=== PATIENT | male | born 1965 | race Hispanic/Latino ===

== ENCOUNTER 2018-02-22 19:16 | Emergency (ER) | payer MEDICAID ==
[~2018-02-22 19:16] MED LIST: ATOR20TA65 PO; CLOP75TA32 PO; LISI-613 PO
[2018-02-22] MEDS ORDERED: ONDANSETRON HCL 4 MG/2 ML VIAL ONE ×3 (19:41→20:11)
[2018-02-22] MEDS ORDERED: MORPHINE SULFATE 4 MG/1ML SYG ONE (19:41)
[2018-02-22] MEDS ORDERED: DiphenhydrAMINE HCL 50 MG/ML VIAL ONE (20:22)
[2018-02-22] MEDS ORDERED: PROCHLORPERAZINE EDISYLATE 10 MG/2 ML VIAL ONE (20:22)
[2018-02-22 20:28] LABS: BASOPHILS % (AUTO) 0.5 % (0.0-5.0); EOSINOPHILS % (AUTO) 1.3 % (0.0-8.0); HEMATOCRIT 37.6 % (42-54); LYMPHOCYTES % (AUTO) 36.5 % (21.0-51.0); MEAN CORPUSCULAR HEMOGLOBIN 29.6 pg (27.0-33.0); MEAN CORPUSCULAR HGB CONC 34.9 g/dL (32.0-36.0); MEAN CORPUSCULAR VOLUME 84.9 fL (79-99); MONOCYTES % (AUTO) 6.3 % (3.0-13.0); NEUTROPHILS % (AUTO) 55.4 % (40.0-77.0); PLATELET COUNT (AUTO) 259 K/uL (130-400); RED BLOOD CELL COUNT(AUTO) 4.43 MIL/uL (4.50-6.20); RED CELL DISTRIBUTION WIDTH 13.1 % (11.0-15.5); WHITE BLOOD COUNT (AUTO) 10.7 K/uL (4.8-10.8)
[2018-02-22 20:41] LABS: INR 0.92 (0.85-1.15); PROTHROMBIN TIME 9.7 SEC (9.6-11.6)
[2018-02-22 20:45] LABS: CREATININE 1.3 mg/dL (0.5-1.5)
[2018-02-22 20:50] LABS: ALBUMIN 3.6 g/dL (3.5-5.0); BILIRUBIN,TOTAL 0.3 mg/dL (0.2-1.0); TOTAL PROTEIN, SERUM 7.4 g/dL (6.0-8.3)
[2018-02-22 21:03] LABS: APPEARANCE,URINE Clear (CLEAR); BILIRUBIN,URINE Negative (NEGATIVE); COLOR,URINE Yellow (YELLOW); GLUCOSE, URINE (UA) Negative (NEGATIVE); KETONES,URINE Negative (NEGATIVE); LEUKOCYTE ESTERASE ,URINE Negative (NEGATIVE); NITRATE,URINE Negative (NEGATIVE); OCCULT BLOOD,URINE Negative (NEGATIVE); PROTEIN,URINE Negative (NEGATIVE)
== END 2018-02-22 21:48 | disposition home or self-care (01) ==
LOC: EDH 19:16
DX: S06.0X0A Concussion without loss of consciousness, initial encounter (principal); S16.1XXA Strain of muscle, fascia and tendon at neck level, initial encounter; I10 Essential (primary) hypertension; E78.5 Hyperlipidemia, unspecified; F41.1 Generalized anxiety disorder; R79.1 Abnormal coagulation profile; Y92.89 Other specified places as the place of occurrence of the external cause; V69.49XA Driver of heavy transport vehicle injured in collision with other motor vehicles in traffic accident, initial encounter; Y93.89 Activity, other specified; Y99.8 Other external cause status
CPT/HCPCS: 36415; 70450; 72125; 80053; 81003; 85025; 85610; 85730; 96374; 96375; 99285; J0780; J1200; J2270; J2405 ×3

== ENCOUNTER → 2019-03-16 | Outpatient (CLI) | payer MEDICAID ==
--- NOTE | 2019-03-16 23:57 | NUR ---
PATIENT UNABLE TO RECALL HOME MEDICATION NAMES. TAKES MEDICATION FOR BLOOD PRESSURE, CHOLESTEROL, BLOOD THINNER, BREATHING MED. MDI, LEG PAIN MEDICATION. Addendum: 03/16/19 at 2358 by DEONNA HAIRSTON Amended: Links added.
== END | disposition home or self-care (01) ==
LOC: SLP 20:15
PROVIDERS: ATTEND Internal Medicine Cardiovascular Disease
DX: G47.33 Obstructive sleep apnea (adult) (pediatric) (principal); I10 Essential (primary) hypertension; J45.909 Unspecified asthma, uncomplicated
CPT/HCPCS: 95810

== ENCOUNTER 2019-03-26 20:10 | Emergency (ER) | payer MEDICAID | END 2019-03-26 21:47 | disposition home or self-care (01) | LOC: EDH 20:10 | DX: S13.4XXA Sprain of ligaments of cervical spine, initial encounter (principal); F41.9 Anxiety disorder, unspecified; E78.5 Hyperlipidemia, unspecified; V69.49XA Driver of heavy transport vehicle injured in collision with other motor vehicles in traffic accident, initial encounter; Y93.89 Activity, other specified; Y92.410 Unspecified street and highway as the place of occurrence of the external cause; Y99.8 Other external cause status | CPT/HCPCS: 72040 ==

== ENCOUNTER → 2019-04-06 | Outpatient (CLI) | payer MEDICAID | END | disposition home or self-care (01) | LOC: SLP 20:13 | PROVIDERS: ATTEND Internal Medicine Cardiovascular Disease | DX: G47.33 Obstructive sleep apnea (adult) (pediatric) (principal); I10 Essential (primary) hypertension; J45.909 Unspecified asthma, uncomplicated | CPT/HCPCS: 95811 ==

== ENCOUNTER 2019-11-08 14:17 | Emergency (ER) | payer MEDICAID ==
[2019-11-08] MEDS ORDERED: CEFTRIAXONE SODIUM 1 GM ONE (15:01)
[2019-11-08] MEDS ORDERED: DEXAMETHASONE SOD PHOSPHATE 4 MG/ML 5ML VIAL ONE (15:01)
[2019-11-08] MEDS ORDERED: SODIUM CHLORIDE 0.9% 100 ML IV ONE (15:01)
[2019-11-08] MEDS ORDERED: IPRATROPIUM/ALBUTEROL SULFATE 3 ML SOLUTION IH ONE (15:02)
[2019-11-08 15:17] LABS: BASOPHILS % (AUTO) 0.3 % (0.0-5.0); EOSINOPHILS % (AUTO) 2.6 % (0.0-8.0); HEMATOCRIT 41.3 % (42-54); LYMPHOCYTES % (AUTO) 24.7 % (21.0-51.0); MEAN CORPUSCULAR HEMOGLOBIN 28.3 pg (27.0-33.0); MEAN CORPUSCULAR HGB CONC 32.7 g/dL (32.0-36.0); MEAN CORPUSCULAR VOLUME 86.6 fL (79-99); MONOCYTES % (AUTO) 11.2 % (3.0-13.0); NEUTROPHILS % (AUTO) 60.7 % (40.0-77.0); PLATELET COUNT (AUTO) 229 K/uL (130-400); RED BLOOD CELL COUNT(AUTO) 4.77 MIL/uL (4.50-6.20); RED CELL DISTRIBUTION WIDTH 12.7 % (11.0-15.5); WHITE BLOOD COUNT (AUTO) 6.1 K/uL (4.8-10.8)
[2019-11-08 15:29] LABS: CREATININE 1.3 mg/dL (0.5-1.5); POTASSIUM 3.7 mmol/L (3.5-5.1)
[2019-11-08 16:12] LABS: B-TYPE NATRIURETIC PEPTIDE < 5 pg/mL (0-100)
== END 2019-11-08 17:51 | disposition home or self-care (01) ==
LOC: EDH 14:17
DX: J10.1 Influenza due to other identified influenza virus with other respiratory manifestations (principal); F41.9 Anxiety disorder, unspecified; E78.5 Hyperlipidemia, unspecified; I10 Essential (primary) hypertension; I95.9 Hypotension, unspecified
CPT/HCPCS: 36415; 71046; 80048; 82550; 83880; 84484; 85025; 87804 ×2; 93005; 94640; 96374; 96375; 99285; J0696; J1100

== ENCOUNTER 2020-02-15 23:51 | Emergency (ER) | payer MEDICAID ==
[2020-02-15] MEDS ORDERED: PROMETHAZINE HCL 25 MG/ML 1ML AMPULE IM ONE (23:52)
[2020-02-16] MEDS ORDERED: ONDANSETRON ODT 4 MG TAB ONE (00:16)
[2020-02-16] MEDS ORDERED: HYDROMORPHONE 1 MG/1 ML AMP ONE (00:16)
[2020-02-16] MEDS ORDERED: PREDNISONE 20 MG TABLET ONE (00:20)
== END 2020-02-16 01:12 | disposition home or self-care (01) ==
LOC: EDH 23:51
DX: B02.9 Zoster without complications (principal); H92.01 Otalgia, right ear; R73.03 Prediabetes; I10 Essential (primary) hypertension; F41.9 Anxiety disorder, unspecified; E78.5 Hyperlipidemia, unspecified; Z98.890 Other specified postprocedural states
CPT/HCPCS: 82948; 96372 ×2; 99284; J1170; J2550

== ENCOUNTER 2020-06-09 15:52 | Emergency (ER) | payer MEDICAID ==
[2020-06-09] MEDS ORDERED: SODIUM CHLORIDE 0.9% 1000ML 1,000 ML IV ONE (15:53)
[2020-06-09] MEDS ORDERED: KETOROLAC TROMETHAMINE 30MG/ML IV ONE (15:53)
[2020-06-09 16:28] LABS: APPEARANCE,URINE Cloudy (CLEAR); BILIRUBIN,URINE Negative (NEGATIVE); COLOR,URINE Dark Yellow (YELLOW); GLUCOSE, URINE (UA) Negative (NEGATIVE); KETONES,URINE Negative (NEGATIVE); LEUKOCYTE ESTERASE ,URINE Trace (NEGATIVE); NITRATE,URINE Negative (NEGATIVE); OCCULT BLOOD,URINE Large (NEGATIVE); PROTEIN,URINE POS 1+ mg/dL (NEGATIVE)
[2020-06-09 16:32] LABS: BASOPHILS % (AUTO) 0.4 % (0.0-5.0); EOSINOPHILS % (AUTO) 1.1 % (0.0-8.0); HEMATOCRIT 39.4 % (42-54); LYMPHOCYTES % (AUTO) 19.6 % (21.0-51.0); MEAN CORPUSCULAR HGB CONC 33.8 g/dL (32.0-36.0); MEAN CORPUSCULAR VOLUME 85.8 fL (79-99); MONOCYTES % (AUTO) 5.1 % (3.0-13.0); NEUTROPHILS % (AUTO) 73.3 % (40.0-77.0); PLATELET COUNT (AUTO) 249 K/uL (130-400); RED BLOOD CELL COUNT(AUTO) 4.59 MIL/uL (4.50-6.20); RED CELL DISTRIBUTION WIDTH 12.2 % (11.0-15.5)
[2020-06-09 16:39] LABS: CREATININE 1.4 mg/dL (0.5-1.5); POTASSIUM 3.7 mmol/L (3.5-5.1)
[2020-06-09 16:42] LABS: BACTERIA,URINE Few /HPF (None Seen); MUCUS,URINE Few LPF (None Seen); RBC,URINE 26-50 /HPF (0-1); SQUAMOUS EPITHELIAL CELL,UR Moderate /HPF (0-2)
[2020-06-09 16:44] LABS: ALBUMIN 3.7 g/dL (3.5-5.0); BILIRUBIN,TOTAL 0.3 mg/dL (0.2-1.0); TOTAL PROTEIN, SERUM 7.5 g/dL (6.0-8.3)
[2020-06-09] MEDS ORDERED: KETOROLAC TROMETHAMINE 30MG/ML ONE (16:45)
[2020-06-09] MEDS ORDERED: SODIUM CHLORIDE 0.9% 500ML 500 ML IV ONE (16:46)
== END 2020-06-09 17:48 | disposition home or self-care (01) ==
LOC: EDH 15:52
DX: R10.31 Right lower quadrant pain (principal); R31.9 Hematuria, unspecified; F41.9 Anxiety disorder, unspecified; E78.5 Hyperlipidemia, unspecified; I10 Essential (primary) hypertension; I95.9 Hypotension, unspecified
CPT/HCPCS: 36415; 74176; 80053; 81001; 85025; 99284; J1885; J7040; J7030

== ENCOUNTER 2021-10-10 07:10 | Day surgery (SDC) | payer MEDICAID ==
[2021-10-08 12:03] LABS: BASOPHILS % (AUTO) 0.7 % (0.0-5.0); EOSINOPHILS % (AUTO) 2.7 % (0.0-8.0); HEMATOCRIT 44.1 % (42-54); MEAN CORPUSCULAR HEMOGLOBIN 28.3 pg (27.0-33.0); MEAN CORPUSCULAR HGB CONC 33.1 g/dL (32.0-36.0); MEAN CORPUSCULAR VOLUME 85.6 fL (79-99); MONOCYTES % (AUTO) 7.3 % (3.0-13.0); NEUTROPHILS % (AUTO) 53.9 % (40.0-77.0); PLATELET COUNT (AUTO) 293 K/uL (130-400); RED BLOOD CELL COUNT(AUTO) 5.15 MIL/uL (4.50-6.20); RED CELL DISTRIBUTION WIDTH 12.4 % (11.0-15.5); WHITE BLOOD COUNT (AUTO) 7.4 K/uL (4.8-10.8)
[2021-10-08 12:05] LABS: APPEARANCE,URINE Clear (CLEAR); BILIRUBIN,URINE Negative (NEGATIVE); COLOR,URINE Yellow (YELLOW); GLUCOSE, URINE (UA) Negative (NEGATIVE); KETONES,URINE Negative (NEGATIVE); LEUKOCYTE ESTERASE ,URINE Negative (NEGATIVE); NITRATE,URINE Negative (NEGATIVE); OCCULT BLOOD,URINE Negative (NEGATIVE); PROTEIN,URINE Negative (NEGATIVE); UROBILINOGEN,URINE 0.2 mg/dL (0.2-1.0)
[2021-10-08 12:11] LABS: CREATININE 1.4 mg/dL (0.5-1.5); POTASSIUM 3.9 mmol/L (3.5-5.1)
[2021-10-09 12:01] VITALS: BP 144/80
[~2021-10-10] VITALS: Ht 162.6 cm; Wt 79.9 kg
[2021-10-10] VITALS (14 sets, daily range): BP systolic 98–135; BP diastolic 72–91
[~2021-10-10 07:10] MED LIST changes: -ATOR20TA65 PO; -CLOP75TA32 PO; +GABA-529 PO; -LISI-613 PO; +LISI20TA24 PO
[2021-10-10] MEDS ORDERED: LACTATED RINGERS 1000ML 1,000 ML IV ONE (07:23)
[2021-10-10] MEDS ORDERED: CEFTRIAXONE 1G VIAL ONE (07:23)
[2021-10-10] MEDS ORDERED: IOHEXOL-350 50ML VIAL IV ONE (09:14)
[2021-10-10] MEDS ORDERED: SUGAMMADEX SODIUM 200 MG/2 ML VIAL IV ONE (09:21)
== END 2021-10-10 10:55 | disposition home or self-care (01) ==
LOC: DAH 07:10
PROVIDERS: ATTEND Urology
DX: N20.1 Calculus of ureter (principal); Z20.822 Contact with and (suspected) exposure to COVID-19; I10 Essential (primary) hypertension; J45.909 Unspecified asthma, uncomplicated; E11.9 Type 2 diabetes mellitus without complications; E03.9 Hypothyroidism, unspecified; E66.9 Obesity, unspecified; Z83.3 Family history of diabetes mellitus; Z98.890 Other specified postprocedural states
CPT/HCPCS: 36415; 52005; 71045; 74018; 74420; 80048; 81003; 85025; 87088; 87635; 93005; A4215; A4221; A4222; A4223; A4358; A4663; A6260; C1769; C9803; J0696; J3490; J7120; Q9967

== ENCOUNTER → 2022-05-23 | Outpatient (CLI) | payer MEDICAID | END | disposition home or self-care (01) | LOC: OIH 08:01 | PROVIDERS: ATTEND Internal Medicine Cardiovascular Disease | DX: I35.1 Nonrheumatic aortic (valve) insufficiency (principal) | CPT/HCPCS: 93306 ==

== ENCOUNTER → 2023-12-04 | Outpatient (CLI) | payer MEDICAID ==
[~2023-12-04] MED LIST changes: +DICY20TA2 PO; +KETO10 PO; +MELO7.5T12 PO; +METO-296 PO; +ONDA4TAB10 PO; +TAMS-1 PO
[2023-12-04 12:52] LABS: ALBUMIN 3.8 g/dL (3.5-5.0); BILIRUBIN,TOTAL 0.5 mg/dL (0.2-1.0); CREATININE 1.3 mg/dL (0.5-1.3); TOTAL PROTEIN, SERUM 7.8 g/dL (6.0-8.3)
== END | disposition home or self-care (01) ==
LOC: LAB 09:02
PROVIDERS: ATTEND Physician Assistant
DX: I10 Essential (primary) hypertension (principal); R07.9 Chest pain, unspecified
CPT/HCPCS: 36415; 80053; 80061

== ENCOUNTER 2024-02-01 21:03 | Emergency (ER) | payer MEDICAID ==
[~2024-02-01] VITALS: Ht 162.6 cm; Wt 77.1 kg
[~2024-02-01 21:03] MED LIST changes: +ONDA-243 PO; -ONDA4TAB10 PO
[2024-02-01 21:31] LABS: BASOPHILS # (AUTO) 0.02 K/uL (0.00-0.20); BASOPHILS % (AUTO) 0.2 % (0.0-5.0); EOSINOPHILS # (AUTO) 0.13 K/uL (0.00-0.70); EOSINOPHILS % (AUTO) 1.3 % (0.0-8.0); IMMATURE GRANULOCYTE ABSOLUTE 0.02 K/uL (0-1); LYMPHOCYTES # (AUTO) 1.4 K/uL (1.0-4.8); MEAN CORPUSCULAR HEMOGLOBIN 28.5 pg (27.0-33.0); MEAN CORPUSCULAR HGB CONC 33.3 g/dL (32.0-36.0); MEAN CORPUSCULAR VOLUME 85.6 fL (79-99); MONOCYTES # (AUTO) 0.6 K/uL (0.1-1.0); MONOCYTES % (AUTO) 5.8 % (3.0-13.0); NEUTROPHILS # (AUTO) 8.1 K/uL (1.8-7.7); NEUTROPHILS % (AUTO) 78.5 % (40.0-77.0); PLATELET COUNT (AUTO) 241 K/uL (130-400); RED BLOOD CELL COUNT(AUTO) 5.26 MIL/uL (4.50-6.20); RED CELL DISTRIBUTION WIDTH 12.9 % (11.0-15.5); WHITE BLOOD COUNT (AUTO) 10.3 K/uL (4.8-10.8)
[2024-02-01 21:43] LABS: CREATININE 1.6 mg/dL (0.5-1.3); INR <= 0.93 (0.85-1.15); POTASSIUM 4.1 mmol/L (3.5-5.1); PROTHROMBIN TIME 10.4 SEC (9.6-11.6)
[2024-02-01 21:45] LABS: PARTIAL THROMBOPLASTIN TIME 23.3 SEC (26.3-35.5)
[2024-02-01 21:47] LABS: BILIRUBIN,TOTAL 0.8 mg/dL (0.2-1.0); TOTAL PROTEIN, SERUM 8.3 g/dL (6.0-8.3)
[2024-02-01] MEDS: 0.9%NACL 1000ML 1,000 ML IV ONE ×2 (22:43→23:44)
[2024-02-01] MEDS: ONDANSETRON 4MG INJ ONE (22:43)
[2024-02-01] MEDS: ONDANSETRON 4MG INJ IVP ONE (23:44)
[2024-02-02 00:20] VITALS: BP 116/88; PULSE 88; RESP 16; O2SAT 98
== END 2024-02-02 00:23 | disposition home or self-care (01) ==
LOC: EDH 21:03
DX: E86.0 Dehydration (principal); J45.909 Unspecified asthma, uncomplicated; E78.00 Pure hypercholesterolemia, unspecified; I10 Essential (primary) hypertension
CPT/HCPCS: 99283; 96374; 96361; 80053; 83690; 85025; 85610; 85730; 83605; 36415; J7030; J2405

== ENCOUNTER → 2024-02-24 | Outpatient (CLI) | payer MEDICAID ==
[2024-02-24 12:28] LABS: ALBUMIN 3.6 g/dL (3.5-5.0); BILIRUBIN,TOTAL 0.4 mg/dL (0.2-1.0); CREATININE 1.2 mg/dL (0.5-1.3); POTASSIUM 3.9 mmol/L (3.5-5.1); TOTAL PROTEIN, SERUM 7.5 g/dL (6.0-8.3)
== END | disposition home or self-care (01) ==
LOC: LAB 08:28
PROVIDERS: ATTEND Physician Assistant
DX: I10 Essential (primary) hypertension (principal); E78.00 Pure hypercholesterolemia, unspecified
CPT/HCPCS: 36415; 80053; 80061

== ENCOUNTER → 2024-08-24 | Outpatient (CLI) | payer MEDICAID ==
[2024-08-24 12:46] LABS: ALBUMIN 3.7 g/dL (3.5-5.0); BILIRUBIN,TOTAL 0.4 mg/dL (0.2-1.0); CREATININE 1.3 mg/dL (0.5-1.3); POTASSIUM 4.2 mmol/L (3.5-5.1); TOTAL PROTEIN, SERUM 7.7 g/dL (6.0-8.3)
== END | disposition home or self-care (01) ==
LOC: LAB 09:13
PROVIDERS: ATTEND Physician Assistant
DX: I10 Essential (primary) hypertension (principal); E78.5 Hyperlipidemia, unspecified
CPT/HCPCS: 36415; 80053; 80061

== ENCOUNTER 2024-12-24 22:05 | Emergency (ER) | payer MEDICAID ==
[~2024-12-24] VITALS: Ht 162.6 cm; Wt 77.1 kg
[~2024-12-24 22:05] MED LIST changes: +CEPH500B PO; -TAMS-1 PO; +TAMS-55 PO
[2024-12-24 22:58] LABS: INFLUENZA TYPE A Negative For Type A (NEGATIVE); INFLUENZA TYPE B Negative For Type B (NEGATIVE)
[2024-12-24 23:00] LABS: SARS-CoV-2, RNA, NAAT NEGATIVE SARS CoV-2 (NEGATIVE)
[2024-12-24] MEDS: ketOROlac 15MG/ML VIAL (15MG/ML) ONE (23:35)
[2024-12-24] MEDS: Solu-medROL 125MG VIAL IVP ONE (23:47)
[2024-12-24] MEDS: BENZONATATE 100 MG CAPSULE PO ONE (23:47)
[2024-12-25] MEDS ORDERED: METH4TAB3 PO (00:43)
[2024-12-25] MEDS ORDERED: BENZ-39 PO (00:43)
[2024-12-25] MEDS ORDERED: AZIT250T9 PO (00:43)
--- NOTE | 2024-12-25 00:45 | ERN ---
General Chief Complaint: Flu Symptoms Stated Complaint: FEVER, COUGH, H/A, SOB ONSET THURSDAY Time Seen by MD: 22:06 Time Seen by Midlevel: 22:06 Source: patient History of Present Illness Initial Comments The patient is a 59 year old male with a past medical history of hyperlipidemia and asthma presenting to the emergency department for evaluation of fever, cough, and headache that started three days ago. Today he developed some mild shortness of breath which prompted the ER visit. The patient was not taking any [id number] medications. He does report having a history of asthma but does not use an inhaler or take any medications. No other symptoms reported. Denies any sick contacts. Allergies: Coded Allergies: No Known Drug Allergies (Unverified Allergy, Unknown, 09/30/16) Home Meds Active Scripts Cephalexin Monohydrate (Keflex) 500 Mg Cap, 1 CAP PO BID for 10 Days, #20 CAP 0 Refills Prov:JUANA JOSEPH MD 08/26/24 Tamsulosin HCl (Flomax) 0.4 Mg Cap.er.24h, 0.4 MG PO DAILY for 7 Days, #7 CAPSULE.DR Prov:JUANA JOSEPH MD 08/26/24 Ketorolac Tromethamine (Toradol) 10 Mg Tab, 10 MG PO TID for 7 Days, #21 TAB Prov:JUANA JOSEPH MD 08/26/24 Tamsulosin HCl (Flomax) 0.4 Mg Cap.er.24h, 0.4 MG PO DAILY, #14 CAPSULE.DR 0 Refills Prov:AISLINN SANTOS MD 11/03/21 Dicyclomine HCl (Bentyl) 20 Mg Tab, 20 MG PO Q6HPRN, #20 TAB 0 Refills Prov:AISLINN SANTOS MD 11/03/21 Ondansetron (Ondansetron Odt) 4 Mg Tab.rapdis, 4 MG PO Q6HPRN, #20 TAB 0 Refills Prov:AISLINN SANTOS MD 11/03/21 Metoclopramide HCl (Reglan) 10 Mg Tablet, 10 MG PO TIDP, #20 TAB 0 Refills Prov:AISLINN SANTOS MD 11/03/21 Meloxicam (Mobic) 7.5 Mg Tablet, 7.5 MG PO DAILY, #10 TAB 0 Refills Prov:AISLINN SANTOS MD 11/03/21 Ketorolac Tromethamine (Toradol) 10 Mg Tab, 10 MG PO Q6HPRN PRN for MODERATE PAIN (4-6), #20 TAB Prov:DADA LONG Jr., MD 09/30/21 Tamsulosin HCl (Flomax) 0.4 Mg Cap.er.24h, 0.4 MG PO HS for 21 Days, #21 CAPSULE.DR Prov:DADA LONG Jr., MD 09/30/21 Reported Medications Gabapentin (Gabapentin) 100 Mg Capsule, 100 MG PO TID, CAP 10/09/21 Lisinopril (Lisinopril) 20 Mg Tablet, 20 MG PO DAILY, TAB 10/09/21 Past Medical History Past Medical History: Asthma, CVA, High Cholesterol, Hypotension, Kidney Stone Past Surgical History: None ROS Dictation CONSTITUTIONAL: Negative except for HPI HEAD/FACE: Negative except for HPI EENT: Negative except for HPI RESPIRATORY: Negative except for HPI GASTROINTESTINAL/ABDOMINAL: Negative except for HPI GENITOURINARY: Negative except for HPI MUSCULOSKELETAL: Negative except for HPI INTEGUMENTARY: Negative except for HPI NEUROLOGICAL/PSYCH: Negative except for HPI HEMATOLOGIC/LYMPHATIC: Negative except for HPI All Systems Negative, Except as noted above. 13 point review of systems assessed and all negative except for above. Physical Exam Physical Exam Dictation Vital Signs reviewed General Appearance: Alert, oriented x 3, no acute distress, well developed, nourished. Head and Face: non-traumatic. Eyes: PERRL, pink conjunctivas, eyelid no trauma, anterior chamber with arcus senilis. Ears: Pinnas intact and no signs of trauma or erythema ear canals clear and no discharge TM no erythema Nose: No discharge, no bleeding. Oropharynx: Mouth normal, tongue pink, pharynx clear,no erythema, tonsils no exudates, no abscesses noted, mucous membrane moist Neck: Supple, non-tender, no thyromegaly, no masses, no JVD, no bruits Breast:Deferred Chest:No tenderness, no crepitus, no paradoxical movement, no retractions Lungs:Clear, well-ventilated, symmetric, no rales, mild expiratory wheezing to bilateral lung chandler, no rhonchi, no stridor, good breath sounds bilaterally Heart: Regular rate, regular rhythm, no murmur, no gallops Vascular: no peripheral edema, Abdomen: Soft, positive bowel sounds, nondistended, no guarding, nontender, no rebound, no masses no hepatomegaly, no splenomegaly, no Terrell's sign, no hernias. Rectal: Deferred Genital: Deferred Neurological: Normal speech, motor function intact, sensory function intact Musculoskeletal: Neck nontender, full range of motion, back nontender, full range of motion, Extremities: nontender, full range of motion Skin: Color pink, dry, no turgor, no rash, no lacerations, no abrasions, no contusions. Lymphatic: Deferred Results Laboratory and Microbiology Lab and Micro Result Laboratory Tests Test 12/24/24 22:24 Influenza Type A Antigen Negative For Type A Influenza Type B Antigen Negative For Type B SARS-CoV-2, RNA, NAAT NEGATIVE SARS CoV-2 Labs Reviewed?: Yes MDM MDM: Differential diagnosis: Pneumonia, acute bronchitis, pneumonitis, viral illness, upper respiratory infection There are no social concerns with this patient. Prescription drug management Prescriptions will include: Azithromycin, Medrol pack, Tessalon Perles Medical management and examination interpretation discussions were had by me with other qualified healthcare professionals as indicated for the patient's care. ED Course Orders Procedure Category Date Status Time Covid Rna Naat LAB 12/24/24 Complete 22:21 Influenza Type A & B, LAB 12/24/24 Complete Rapid 22:21 Chest 1vw RAD 12/24/24 Taken 23:01 Ketorolac PHA 12/24/24 Complete Tromethamine 15mg/Ml 23:24 Ketorolac PHA 12/24/24 Complete Tromethamine 15mg/Ml 23:34 Methylprednisolone PHA 12/25/24 Complete Succ 125mg (Solu-Medr 00:00 Benzonatate 100 Mg PHA 12/25/24 Complete Capsule (Tessalon 100 00:00 Acetaminophen With PHA 12/25/24 Complete Codeine (Tylenol-Code 00:00 Current Medications Medications (Trade) Dose Ordered Sig/Virgen Route PRN Reason Start Time Stop Time Status Last Admin Dose Admin Acetaminophen/ Codeine Phosphate (TYLenol-coDEINE TAB) 1 tab ONCE ONCE PO 12/25/24 00:00 12/25/24 00:01 DC Benzonatate (Tessalon 100mg Caps) 200 mg ONCE ONCE PO 12/25/24 00:00 12/25/24 00:01 DC 12/24/24 23:47 Ketorolac Tromethamine (toRADol) 15 mg STK-MED ONCE .ROUTE 12/24/24 23:24 12/24/24 23:25 DC 12/24/24 23:35 Ketorolac Tromethamine (toRADol) 15 mg STK-MED ONCE .ROUTE 12/24/24 23:34 12/24/24 23:34 DC Methylprednisolone Sodium Succinate (Solu-medROL 125MG) 125 mg ONCE ONCE IVP 12/25/24 00:00 12/25/24 00:01 DC 12/24/24 23:47 Vital Signs Date Time Temp Pulse Resp B/P (MAP) Pulse Ox O2 Delivery O2 Flow Rate FiO2 12/24/24 22:39 98.2 81 20 125/70 99 Room Air* 0 21 12/24/24 22:06 99.3 89 18 154/81 95 Room Air 0 DX & DISP Disposition: Discharge Departure Impression: Primary Impression: Acute bronchitis Additional Impression: Asthma exacerbation Condition: Stable Scripts Benzonatate (Tessalon Perles) 100 Mg Cap 100 MG PO TID for cough for 10 Days, #30 CAP 0 Refills Prov: RAVI HOUSTON 12/25/24 Azithromycin (Azithromycin) 250 Mg Tablet 1 TAB PO AD for 5 Days, #6 TAB 0 Refills 2 the first day followed by 1 for days 2-5 Prov: RAVI HOUSTON 12/25/24 Methylprednisolone (Medrol) 4 Mg Tab.ds.pk 1 TAB PO AD for 6 Days, #21 TAB 0 Refills 6 on day 1 then reduce by one tablet daily until gone Prov: RAVI HOUSTON 12/25/24 Additional Instructions: You have tested negative for influenza a, influenza B, COVID-19, and strep. Your vital signs in the emergency department are stable. Your chest x-ray shows some mild congestion but no evidence of pneumonia. I have given you a prescription to help with your symptoms. You were given a prescription of steroids, antibiotics, and anti cough medication. Please follow up with your primary care doctor in 2-3 days for repeat evaluation. Return to the ER if you develop any new or worsening symptoms Referrals: GUANAKITO CASTILLO MD (PCP) Time of Disposition: 00:42 I have reviewed the case, and I agree with, Diagnosis and Plan I performed the substantive portion of the visit. I have reviewed and personally made and approve the management plan that is documented in the note by myself or the VENKATA. I acknowledge for responsibility for the patient's management plan. RAVI HOUSTON Dec 25, 2024 00:44
[2024-12-25] MEDS: acetaMINOPHEN WITH coDEINE 1 TAB TAB PO ONE (00:49)
[2024-12-25] MEDS: ketOROlac 15MG/ML VIAL (15MG/ML) ONE (00:49)
[2024-12-25 01:07] VITALS: BP 129/69; PULSE 78; RESP 16; TEMP 98.4; O2SAT 96
--- NOTE | 2024-12-25 08:34 | HMCIMG ---
INDICATION: sob/cough TECHNIQUE: CHEST 1VW COMPARISON: 10/08/2021 FINDINGS AND IMPRESSION: Prominent bilateral interstitial markings which may represent bronchitis or vascular congestion in the proper clinical setting. Cardiac silhouette is within normal limits. Mild degenerative changes of the spine. The visualized upper abdomen appears unremarkable.
== END 2024-12-25 01:08 | disposition home or self-care (01) ==
LOC: EEVIPCON 22:05 → EDH 22:05
DX: J20.9 Acute bronchitis, unspecified (principal); J45.901 Unspecified asthma with (acute) exacerbation; E78.00 Pure hypercholesterolemia, unspecified; Z79.1 Long term (current) use of non-steroidal anti-inflammatories (NSAID); Z79.899 Other long term (current) drug therapy; Z86.73 Personal history of transient ischemic attack (TIA), and cerebral infarction without residual deficits; Z20.822 Contact with and (suspected) exposure to COVID-19
CPT/HCPCS: 99284; 96374; 71045; 87635; 87804 ×2; J1885; J2919

== ENCOUNTER 2025-07-17 18:49 | Emergency (ER) | payer MEDICAID ==
[~2025-07-17] VITALS: Ht 162.6 cm; Wt 85.7 kg
[~2025-07-17 18:49] MED LIST changes: +AZIT250T9 PO; +BENZ-39 PO; +METH4TAB3 PO
[2025-07-17 19:00] VITALS: TEMP 99.2
--- NOTE | 2025-07-17 19:54 | EKG ---
[facility] Test Date: 2025-07-17 Test Time: 19:49:03 Pat Name: CATHI LANDERS Department: ED Room: Gender: Customer Marketing Intern: [facility] : 1965 Requested By: RAVI HOUSTON Order Number: [id number] Reading MD: Linette Reed Measurements Intervals [place] Rate: 84 P: 14 UT: 157 QRS: 35 QRSD: 80 T: 24 QT: 348 QTc: 412 Interpretive Statements Sinus rhythm Compared to ECG 10/08/2021 12:54:25 No significant changes Electronically Signed On 07-19-2025 08:46:11 [employer] by Linette Reed Please click the below link to view image of tracing.
[2025-07-17 20:18] LABS: IMMATURE GRANULOCYTE ABSOLUTE 0.03 K/uL (0-1); NUCLEATED RED BLOOD CELLS 0.0 % (0.0-0.19); PLATELET COUNT (AUTO) 223 K/uL (130-400); RED BLOOD CELL COUNT(AUTO) 4.31 MIL/uL (4.50-6.20); RED CELL DISTRIBUTION WIDTH 12.6 % (11.0-15.5); WHITE BLOOD COUNT (AUTO) 6.8 K/uL (4.8-10.8)
[2025-07-17 20:22] VITALS: PULSE 77; RESP 19
[2025-07-17 20:26] LABS: INR 0.94 (0.85-1.15)
[2025-07-17 20:33] VITALS: BP 131/67; PULSE 86; RESP 18; O2SAT 98
[2025-07-17 20:34] LABS: CREATINE KINASE, TOTAL 99.0 U/L (21-232); CREATININE 1.4 mg/dL (0.5-1.3); GLOMERULAR FILTR. RATE CALC 58.0 mL/min (>90); GLUCOSE,RANDOM 182.0 mg/dL (70-105); SODIUM SERUM 135.0 mmol/L (136-145); UREA NITROGEN, BLOOD 19.0 mg/dL (7-18)
--- NOTE | 2025-07-17 20:50 | ERN ---
General Chief Complaint: Chest Pain Stated Complaint: CHEST DISCOMFORT X 7 DAYS Time Seen by MD: 18:55 Time Seen by Midlevel: 18:55 Source: patient History of Present Illness Initial Comments 59-year-old male presents to the ER for evaluation of chest discomfort that has been ongoing for one week. He also reports shortness of breath but states this is associated with his asthma. He believes he is having a flare-up. Denies any other symptoms Allergies: Coded Allergies: No Known Drug Allergies (Unverified Allergy, Unknown, 09/30/16) Home Meds Active Scripts Benzonatate (Tessalon Perles) 100 Mg Cap, 100 MG PO TID for cough for 10 Days, #30 CAP 0 Refills Prov:RAVI HOUSTON PAC 12/25/24 Azithromycin (Azithromycin) 250 Mg Tablet, 1 TAB PO AD for 5 Days, #6 TAB 0 Refills 2 the first day followed by 1 for days 2-5 Prov:RAVI HOUSTON PAC 12/25/24 Methylprednisolone (Medrol) 4 Mg Tab.ds.pk, 1 TAB PO AD for 6 Days, #21 TAB 0 Refills 6 on day 1 then reduce by one tablet daily until gone Prov:RAVI HOUSTON PAC 12/25/24 Cephalexin Monohydrate (Keflex) 500 Mg Cap, 1 CAP PO BID for 10 Days, #20 CAP 0 Refills Prov:JUANA JOSEPH MD 08/26/24 Tamsulosin HCl (Flomax) 0.4 Mg Cap.er.24h, 0.4 MG PO DAILY for 7 Days, #7 CAPSULE.DR Prov:JUANA JOSEPH MD 08/26/24 Ketorolac Tromethamine (Toradol) 10 Mg Tab, 10 MG PO TID for 7 Days, #21 TAB Prov:JUANA JOSEPH MD 08/26/24 Tamsulosin HCl (Flomax) 0.4 Mg Cap.er.24h, 0.4 MG PO DAILY, #14 CAPSULE.DR 0 Refills Prov:AISLINN SANTOS MD 11/03/21 Dicyclomine HCl (Bentyl) 20 Mg Tab, 20 MG PO Q6HPRN, #20 TAB 0 Refills Prov:AISLINN SANTOS MD 11/03/21 Ondansetron (Ondansetron Odt) 4 Mg Tab.rapdis, 4 MG PO Q6HPRN, #20 TAB 0 Refills Prov:AISLINN SANTOS MD 11/03/21 Metoclopramide HCl (Reglan) 10 Mg Tablet, 10 MG PO TIDP, #20 TAB 0 Refills Prov:AISLINN SANTOS MD 11/03/21 Meloxicam (Mobic) 7.5 Mg Tablet, 7.5 MG PO DAILY, #10 TAB 0 Refills Prov:AISLINN SANTOS MD 11/03/21 Ketorolac Tromethamine (Toradol) 10 Mg Tab, 10 MG PO Q6HPRN PRN for MODERATE PAIN (4-6), #20 TAB Prov:DADA LONG Jr., MD 09/30/21 Tamsulosin HCl (Flomax) 0.4 Mg Cap.er.24h, 0.4 MG PO HS for 21 Days, #21 CAPSULE.DR Prov:DADA LONG Jr., MD 09/30/21 Reported Medications Gabapentin (Gabapentin) 100 Mg Capsule, 100 MG PO TID, CAP 10/09/21 Lisinopril (Lisinopril) 20 Mg Tablet, 20 MG PO DAILY, TAB 10/09/21 Past Medical History Past Medical History: Asthma, CVA, High Cholesterol, Hypotension, Kidney Stone Past Surgical History: None ROS Dictation CONSTITUTIONAL: Negative except for HPI HEAD/FACE: Negative except for HPI EENT: Negative except for HPI RESPIRATORY: Negative except for HPI GASTROINTESTINAL/ABDOMINAL: Negative except for HPI GENITOURINARY: Negative except for HPI MUSCULOSKELETAL: Negative except for HPI INTEGUMENTARY: Negative except for HPI NEUROLOGICAL/PSYCH: Negative except for HPI HEMATOLOGIC/LYMPHATIC: Negative except for HPI All Systems Negative, Except as noted above. 13 point review of systems assessed and all negative except for above. Physical Exam Physical Exam Dictation Vital Signs reviewed General Appearance: Alert, oriented x 3, no acute distress, well developed, nourished. Head and Face: non-traumatic. Eyes: PERRL, pink conjunctivas, eyelid no trauma, anterior chamber with arcus senilis. Ears: Pinnas intact and no signs of trauma or erythema ear canals clear and no discharge TM no erythema Nose: No discharge, no bleeding. Oropharynx: Mouth normal, tongue pink, pharynx clear,no erythema, tonsils no exudates, no abscesses noted, mucous membrane moist Neck: Supple, non-tender, no thyromegaly, no masses, no JVD, no bruits Breast:Deferred Chest:No tenderness, no crepitus, no paradoxical movement, no retractions Lungs:Clear, well-ventilated, symmetric, no rales, no wheezing, no rhonchi, no stridor, good breath sounds bilaterally Heart: Regular rate, regular rhythm, no murmur, no gallops Vascular: no peripheral edema, Abdomen: Soft, positive bowel sounds, nondistended, no guarding, nontender, no rebound, no masses no hepatomegaly, no splenomegaly, no Terrell's sign, no hernias. Rectal: Deferred Genital: Deferred Neurological: Normal speech, motor function intact, sensory function intact Musculoskeletal: Neck nontender, full range of motion, back nontender, full range of motion, Extremities: nontender, full range of motion Skin: Color pink, dry, no turgor, no rash, no lacerations, no abrasions, no contusions. Lymphatic: Deferred Results Laboratory and Microbiology Lab and Micro Result Laboratory Tests Test 07/17/25 20:03 White Blood Count 6.8 K/uL (4.8-10.8) Red Blood Count 4.31 MIL/uL (4.50-6.20) L Hemoglobin 12.3 g/dL (14.0-18.0) L Hematocrit 37.9 % (42-54) L Mean Corpuscular Volume 87.9 fL (79-99) Mean Corpuscular Hemoglobin 28.5 pg (27.0-33.0) Mean Corpuscular Hemoglobin Concent 32.5 g/dL (32.0-36.0) Red Cell Distribution Width 12.6 % (11.0-15.5) Platelet Count 223 K/uL (130-400) Mean Platelet Volume 9.4 fL (7.5-10.5) Immature Granulocyte % (Auto) 0.4 % (0-1) Neutrophils (%) (Auto) 55.6 % (40.0-77.0) Lymphocytes (%) (Auto) 32.4 % (21.0-51.0) Monocytes (%) (Auto) 7.8 % (3.0-13.0) Eosinophils (%) (Auto) 3.5 % (0.0-8.0) Basophils (%) (Auto) 0.3 % (0.0-5.0) Neutrophils # (Auto) 3.8 K/uL (1.8-7.7) Lymphocytes # (Auto) 2.2 K/uL (1.0-4.8) Monocytes # (Auto) 0.5 K/uL (0.1-1.0) Eosinophils # (Auto) 0.24 K/uL (0.00-0.70) Basophils # (Auto) 0.02 K/uL (0.00-0.20) Absolute Immature Granulocyte (auto 0.03 K/uL (0-1) Nucleated Red Blood Cells 0.0 % (0.0-0.19) Prothrombin Time 10.0 SEC (9.6-11.6) Prothromb Time International Ratio 0.94 (0.85-1.15) Activated Partial Thromboplast Time 24.2 SEC (26.3-35.5) L Sodium Level 135 mmol/L (136-145) L Potassium Level 3.6 mmol/L (3.5-5.1) Chloride Level 101 mmol/L (101-111) Carbon Dioxide Level 30 mmol/L (21-32) Blood Urea Nitrogen 19 mg/dL (7-18) H Creatinine 1.4 mg/dL (0.5-1.3) H Glomerular Filtration Rate Calc 58 mL/min (>90) Random Glucose 182 mg/dL (70-105) H Total Calcium 8.4 mg/dL (8.5-10.1) L Magnesium Level 2.00 mg/dL (1.80-2.40) Total Creatine Kinase 99 U/L (21-232) Troponin I High Sensitivity 5 ng/L (4-75) B-Type Natriuretic Peptide < 5 pg/mL (0-100) Labs Reviewed?: Yes MDM MDM: Differential diagnosis: Asthma exacerbation, acute coronary syndrome, pneumonia There are no social concerns with this patient. Prescription drug management Prescriptions will include: Medrol pack, azithromycin Medical management and examination interpretation discussions were had by me with other qualified healthcare professionals as indicated for the patient's care. ED Course Orders Procedure Category Date Status Time 12 Lead Ekg Tracing- EKG 07/17/25 Complete Technical 18:55 B-Type Natriuretic LAB 07/17/25 Complete Peptide 18:55 Basic Metabolic Panel LAB 07/17/25 Complete 18:55 Cbc With Differential LAB 07/17/25 Complete 18:55 Creatine Kinase, Total LAB 07/17/25 Complete 18:55 Magnesium LAB 07/17/25 Complete 18:55 Pt And Ptt LAB 07/17/25 Complete 18:55 Troponin I High LAB 07/17/25 Complete Sensitivity 18:55 Chest 1vw RAD 07/17/25 Taken 18:55 Ipratropium/Albuterol PHA 07/17/25 Complete Neb (Duoneb) 20:00 Methylprednisolone PHA 07/17/25 Complete Succ 125mg (Solu-Medr 20:00 Current Medications Medications (Trade) Dose Ordered Sig/Virgen Route PRN Reason Start Time Stop Time Status Last Admin Dose Admin Albuterol (DUOneb) 1 UDVIAL ONCE ONCE IH 07/17/25 20:00 07/17/25 20:01 DC 07/17/25 20:22 Methylprednisolone Sodium Succinate (Solu-medROL 125MG) 125 mg ONCE ONCE IVP 07/17/25 20:00 07/17/25 20:01 DC 07/17/25 20:21 Vital Signs Date Time Temp Pulse Resp B/P (MAP) Pulse Ox O2 Delivery O2 Flow Rate FiO2 07/17/25 20:33 86 18 131/67 98 Nasal Cannula* 2 28 07/17/25 20:22 77 19 07/17/25 19:00 99.1 105 22 130/78 93 Room Air DX & DISP Disposition: Discharge Departure Impression: Primary Impression: Asthma exacerbation Condition: Stable Scripts Azithromycin (Azithromycin) 250 Mg Tablet 1 TAB PO AD for 5 Days, #6 TAB 0 Refills 2 the first day followed by 1 for days 2-5 Prov: RAVI HOUSTON 07/17/25 Methylprednisolone (Medrol) 4 Mg Tab.ds.pk 1 TAB PO AD for 6 Days, #21 TAB 0 Refills 6 on day 1 then reduce by one tablet daily until gone Prov: RAVI HOUSTON 07/17/25 Referrals: GUANAKITO CASTILLO MD (PCP) Time of Disposition: 20:49 I have reviewed the case, and I agree with, Diagnosis and Plan I performed the substantive portion of the visit. I have reviewed and personally made and approve the management plan that is documented in the note by myself or the VENKATA. I acknowledge for responsibility for the patient's management plan. RAVI HOUSTON Jul 17, 2025 20:50
--- NOTE | 2025-07-17 20:54 | HMCIMG ---
EXAM: CR Chest, 1 View. CLINICAL HISTORY: cp COMPARISON: None provided. FINDINGS: LUNGS: There is no mass, infiltrate, or acute pulmonary abnormality. PLEURAL SPACES: No evidence of pleural effusion or pneumothorax. MEDIASTINUM: Cardiac size and mediastinal contours within normal limits. BONES: No aggressive appearing osseous lesion seen. IMPRESSION: No acute cardiopulmonary pathology is evident. /[place]
== END 2025-07-17 21:26 | disposition home or self-care (01) ==
LOC: EDH 18:49
DX: J45.901 Unspecified asthma with (acute) exacerbation (principal); E78.00 Pure hypercholesterolemia, unspecified; Z79.899 Other long term (current) drug therapy; Z86.73 Personal history of transient ischemic attack (TIA), and cerebral infarction without residual deficits; Z79.1 Long term (current) use of non-steroidal anti-inflammatories (NSAID); Z87.442 Personal history of urinary calculi
CPT/HCPCS: 99285; 96374; 71045; 82550; 83735; 84484; 80048; 83880; 85025; 85610; 85730; 36415; 93005; 94640; J2919